=== PATIENT | female | born 1985 | race Caucasian/White ===

== ENCOUNTER 2017-07-22 21:21 | Emergency (ER) | payer OTHER ==
[2017-07-22] MEDS ORDERED: NITROGLYCERIN 0.4 MG TAB SL PRN (21:36)
[2017-07-22] MEDS ORDERED: SODIUM CHLORIDE 0.9% FLUSH 10 ML SOL IV PRN (21:36)
[2017-07-22] MEDS ORDERED: LORAZEPAM 2 MG/ML SOL IV ONE (21:38)
[2017-07-22 21:51] LABS: BASOPHILS % (AUTO) 1 % (0-3); EOSINOPHILS % (AUTO) 1 % (0-9); HEMATOCRIT 40 % (35-47); HEMOGLOBIN 13.7 gm/dl (12.0-15.5); LYMPHOCYTES % (AUTO) 28.5 % (10-50); MEAN CORPUSCULAR HEMOGLOBIN 30.5 pg (27.0-32.0); MEAN CORPUSCULAR HGB CONC 34.3 gm/dl (32.0-36.0); MEAN CORPUSCULAR VOLUME 89 fL (81-99); MONOCYTES % (AUTO) 6.3 % (0-12)
[2017-07-22 21:58] VITALS: TEMP 97.5
[2017-07-22 22:03] LABS: INR 0.95 (0.86-1.12)
[2017-07-22 22:08] LABS: BLOOD UREA NITROGEN 10 mg/dl (7-18); CALCIUM 8.3 mg/dl (8.5-10.1); CARBON DIOXIDE 25.1 mEq/L (21-32); CHLORIDE 102 mMol/L (98-107); CREATINE KINASE 73 U/L (26-192); CREATININE 0.72 mg/dl (0.60-1.00); GLOM FILT RATE 95 mL/min (>60); GLUCOSE 80 mg/dl (74-106); POTASSIUM 3.6 mMol/L (3.5-5.1); SODIUM 136 mMol/L (136-145); TROP I < 0.017 ng/ml (0.000-0.056)
[2017-07-22 23:09] VITALS: BP 121/80; PULSE 84; RESP 16; O2SAT 99
== END 2017-07-22 22:52 | disposition home or self-care (01) | DRG 313 ==
LOC: ED 21:21
DX: R07.89 Other chest pain (principal); R06.02 Shortness of breath
CPT/HCPCS: 71045; 80048; 82550; 84484; 85025; 85610; 85730; 93005; 99284

== ENCOUNTER 2018-02-17 07:36 | Day surgery (SDC) | payer OTHER ==
[~2018-02-17 07:36] MED LIST: PROPOFOL 500 MG/50 ML EMU IV ONE
[2018-02-17] MEDS ORDERED: FENTANYL 100MCG/2ML SOL ONE (07:58)
[2018-02-17] MEDS ORDERED: MIDAZOLAM 2 MG/2 ML SOL ONE (09:11)
[2018-02-17] MEDS ORDERED: PROPOFOL 10 MG/ML 200 MG/20 ML EMU IV ONE ×2 (09:39→09:48)
[2018-02-17 10:11] VITALS: TEMP 97.6
[2018-02-17 10:28] VITALS: RESP 20; O2SAT 99
[2018-02-17 10:37] VITALS: BP 131/82; PULSE 100
== END 2018-02-17 11:26 | disposition home or self-care (01) | DRG 392 ==
LOC: SURG 07:36
PROVIDERS: ATTEND Internal Medicine Gastroenterology
DX: R10.10 Upper abdominal pain, unspecified (principal); K92.1 Melena; K57.32 Diverticulitis of large intestine without perforation or abscess without bleeding; R13.10 Dysphagia, unspecified; R19.7 Diarrhea, unspecified; R11.0 Nausea; K44.9 Diaphragmatic hernia without obstruction or gangrene; L53.8 Other specified erythematous conditions; Q40.2 Other specified congenital malformations of stomach; K64.8 Other hemorrhoids; K29.70 Gastritis, unspecified, without bleeding; K52.9 Noninfective gastroenteritis and colitis, unspecified
CPT/HCPCS: 84703; J2250; J3010; J2704

== ENCOUNTER 2018-04-09 10:55 | Emergency (ER) | payer OTHER ==
[2018-04-09] MEDS ORDERED: SODIUM CHLORIDE 0.9% FLUSH 10 ML SOL IV PRN (11:14)
[2018-04-09 11:39] LABS: BASOPHILS % (AUTO) 1 % (0-3); EOSINOPHILS % (AUTO) 2 % (0-9); HEMATOCRIT 44 % (35-47); LYMPHOCYTES % (AUTO) 26.7 % (10-50); MEAN CORPUSCULAR HEMOGLOBIN 29.1 pg (27.0-32.0); MEAN CORPUSCULAR HGB CONC 31.8 gm/dl (32.0-36.0); MEAN CORPUSCULAR VOLUME 91 fL (81-99); NEUTROPHILS % (AUTO) 64.2 % (37-80)
[2018-04-09] MEDS ORDERED: ONDANSETRON HCL 4 MG/2 ML SOL IV ONE (11:49)
[2018-04-09] MEDS ORDERED: ONDANSETRON HCL 4 MG/2 ML SOL ONE (11:50)
[2018-04-09 11:53] LABS: INR 0.96 (0.86-1.12)
[2018-04-09 11:59] VITALS: TEMP 97.8
[2018-04-09 12:01] LABS: ALBUMIN 3.7 gm/dl (3.4-5.0); ALKALINE PHOSPHATASE 84 IU/L (46-116); ALT 54 IU/L (14-63); AST 23 IU/L (15-37); BILIRUBIN,TOTAL 0.4 mg/dl (0.2-1.0); BLOOD UREA NITROGEN 8 mg/dl (7-18); CALCIUM 9.1 mg/dl (8.5-10.1); CARBON DIOXIDE 28.3 mEq/L (21-32); CHLORIDE 103 mMol/L (98-107); CREATININE 0.72 mg/dl (0.60-1.00); GLUCOSE 84 mg/dl (74-106); POTASSIUM 3.8 mMol/L (3.5-5.1); SODIUM 140 mMol/L (136-145); TOTAL PROTEIN 7.7 gm/dl (6.4-8.2); TROP I < 0.017 ng/ml (0.000-0.056)
[2018-04-09] MEDS ORDERED: SODIUM CHLORIDE 0.9% 1000ML 1,000 ML IV ONE (12:04)
[2018-04-09] MEDS ORDERED: FENTANYL 100MCG/2ML SOL ONE ×2 (12:30→13:05)
[2018-04-09] MEDS: FENTANYL 100MCG/2ML SOL IV PRN ×2 (12:41→13:06)
[2018-04-09] MEDS ORDERED: HYDROMORPHONE HCL 2 MG/ML SOL IV ONE (15:01)
[2018-04-09] MEDS ORDERED: HYDROMORPHONE 1 MG/ML SYRINGE ONE (15:41)
[2018-04-09] MEDS ORDERED: LISINOPRIL 20 MG TAB ONE (16:34)
[2018-04-09] MEDS ORDERED: LISINOPRIL 20 MG TAB PO ONE (16:35)
[2018-04-09 17:04] VITALS: BP 147/103; PULSE 104; O2SAT 97
[2018-04-09 18:26] VITALS: RESP 21
== END 2018-04-09 17:05 | disposition home or self-care (01) | DRG 103 ==
LOC: ED 10:55
DX: R51 Headache (principal); R20.0 Anesthesia of skin; I10 Essential (primary) hypertension; G43.909 Migraine, unspecified, not intractable, without status migrainosus; R29.701 NIHSS score 1; R40.2362 Coma scale, best motor response, obeys commands, at arrival to emergency department; R40.2142 Coma scale, eyes open, spontaneous, at arrival to emergency department; R40.2252 Coma scale, best verbal response, oriented, at arrival to emergency department
CPT/HCPCS: 36415; 70450; 70544; 70549; 70551; 80053; 84484; 84703; 85025; 85610; 85730; 93005; 96365; 96366; 96374; 96375; 99284; 99291; J2405; J3010; A9270-GY; A9585; J1170

== ENCOUNTER 2018-05-31 20:41 | Emergency (ER) | payer OTHER ==
[2018-05-31 21:02] VITALS: BP 124/86; PULSE 104; RESP 18; TEMP 96.5; O2SAT 96
[2018-05-31] MEDS ORDERED: PREDNISONE 20 MG TAB PO ONE (21:15)
[2018-05-31] MEDS ORDERED: AZITHROMYCIN 250 MG TAB PO ONE (21:15)
[2018-05-31] MEDS ORDERED: PREDNISONE 20 MG TAB ONE (21:19)
[2018-05-31] MEDS ORDERED: AZITHROMYCIN 250 MG TAB ONE (21:19)
== END 2018-05-31 21:33 | disposition home or self-care (01) | DRG 153 ==
LOC: ED 20:41
DX: H66.92 Otitis media, unspecified, left ear (principal)
CPT/HCPCS: 99282; A9270-GY